=== PATIENT | female | born 1940 | race Caucasian/White ===

== ENCOUNTER 2017-11-15 17:03 | Emergency (ER) | payer MEDICARE, MEDICAID ==
[~2017-11-15] VITALS: Ht 154.9 cm; Wt 73.3 kg
[~2017-11-15 17:03] MED LIST: CHOLESTEROL PILL; DIET PILL; DIPH-423 PO; IBUPROFEN; ONDA8TAB9 PO; PRED50TA PO; RANI-366 PO; [UNRECOGNIZED DRUG - REMARK]
[2017-11-15] MEDS ORDERED: meclizine 12.5mg tablet PO ONE (18:00)
[2017-11-15 18:24] VITALS: BP 136/63
[2017-11-15] MEDS ORDERED: ONDA4TAB12 PO (19:17)
[2017-11-15] MEDS ORDERED: MECL-111 PO (19:17)
== END 2017-11-15 19:26 | disposition home or self-care (01) ==
LOC: ER 17:04
DX: R42 Dizziness and giddiness (principal); R11.0 Nausea; M19.90 Unspecified osteoarthritis, unspecified site; G89.29 Other chronic pain; Z88.5 Allergy status to narcotic agent; Z88.0 Allergy status to penicillin; Z88.8 Allergy status to other drugs, medicaments and biological substances; Z79.899 Other long term (current) drug therapy
CPT/HCPCS: 70450; 93005; 99284; J8597

== ENCOUNTER 2017-12-27 12:32 | Outpatient (CLI) | payer MEDICARE, MEDICAID ==
[2017-12-27] VITALS (18 sets, daily range): BP systolic 114–135; BP diastolic 63–103
[~2017-12-27 12:32] MED LIST changes: +MECL-111 PO; +ONDA4TAB12 PO
== END 2017-12-27 23:59 | disposition home or self-care (01) ==
LOC: CARD DIAG 12:32
PROVIDERS: ATTEND Internal Medicine Interventional Cardiology
DX: R42 Dizziness and giddiness (principal); R55 Syncope and collapse; J44.9 Chronic obstructive pulmonary disease, unspecified; Z85.41 Personal history of malignant neoplasm of cervix uteri; Z87.891 Personal history of nicotine dependence
CPT/HCPCS: 93660

== ENCOUNTER 2025-04-09 16:10 | Emergency (ER) | payer MEDICARE, MEDICAID ==
[~2025-04-09] VITALS: Ht 152.4 cm; Wt 59.1 kg
[~2025-04-09 16:10] MED LIST changes: -MECL-111 PO; +MECL-302 PO; +ONDA-243 PO; -ONDA4TAB12 PO
[2025-04-09 16:16] VITALS: BP 84/39; TEMP 97.8
--- NOTE | 2025-04-09 16:27 | Physician Documentation ---
History of Present Illness ~ Chief Complaint: Hip pain Stated Complaint: HIP PAIN/FALL Time Seen by MD: 16:22 Primary Medical Doctor: chintan GOODE 84-year-old female with a mechanical fall two days ago when she tripped over the dog gate. Suffered a head strike at that time causing contusion to her forehead in the right side of her face without loss of consciousness. Additionally injured her right wrist right knee and right hip. She has had a progressive antalgic gait since that time. Tetanus within 5 Years?: No Medication Reconciliation Allergies: Coded Allergies: acetaminophen (Unverified Allergy, Severe, 07/22/13) hydrocodone (Unverified Allergy, Severe, 07/22/13) codeine (Unverified Allergy, Intermediate, 07/22/13) Penicillins (Unverified Allergy, Unknown, 05/29/14) tramadol (Verified Adverse Reaction, Unknown, 05/29/14) Scheduled Diphenhydramine Hcl (Benadryl), 25 MG PO TID Ondansetron (Zofran Odt), 4 MG PO QID Prednisone (Prednisone), 1 TABLET PO DAILY Ranitidine Hcl (Zantac), 150 MG PO DAILY Scheduled PRN Meclizine HCl (Meclizine HCl), 1 TABLET PO TID PRN PRN for dizziness/vertigo ONDANSETRON ODT 4mg tablet (Ondansetron Odt), 1 TABLET PO Q6H PRN for nausea/vomiting Miscellaneous Medications [Cholesterol Pill], (Reported) [Diet Pill], (Reported) [Gerd Pill], (Reported) [Ibuprofen], (Reported) Past Medical History Past Medical History: Arthritis, Chronic Back Pain Past Surgical History: noncontributory Lives In: Home Occupation: retired Physical Exam Vital Signs: RN Vital Signs have been reviewed: Yes, Temperature: 97.8, Source: Temporal, Heart Rate: 81, Respiratory Rate: 18, BP: 84/39, Pulse Oximetry: 95, Weight: 59.090 General Appearance: alert, WD/WN, mild distress Head: contusions (Right temporal superior orbit); No: Correa's Sign Face: normal, ecchymosis (Healing ecchymosis) Eye Lid: normal inspection Pupils/EOM/Fundus: PERRLA Neck: non-tender, full range of motion, normal alignment Chest: normal inspection Cardiovascular: normal peripheral pulses Gastrointestinal: normal palpation Extremities Tenderness to palpation of the right wrist without deformity excellent cap refill. Tenderness to palpation of the right hip without deformity, external rotation or shortening. Tenderness to the right knee without obvious effusion Skin: warm/dry Neurologic: oriented x4 Motor / Sensory: no motor deficit Thoughts/Hallucinations: normal thought pattern Affect: appropriate Progress Results/Orders Results/Orders Orders - MANFRED EUCEDA PAC Ct Head (04/09/25 16:46) Ct Cervical Spine (04/09/25 16:49) Ct Facial Bones/Soft Tissue (04/09/25 16:47) Knee Limited (Ap/Lat) (04/09/25 ) Wrist, Complete (3vw Min) (04/09/25 ) Completed Orders - MANFRED EUCEDA PAC Ct Head (04/09/25 16:46) Ct Cervical Spine (04/09/25 16:49) Ct Facial Bones/Soft Tissue (04/09/25 16:47) Knee Limited (Ap/Lat) (04/09/25 ) Wrist, Complete (3vw Min) (04/09/25 ) Vital Signs 04/09/25 04/09/25 16:16 17:19 Temp 97.8 Pulse 81 Resp 18 16 B/P (MAP) 84/39 Pulse Ox 95 Medical Decision Making Additional information obtaine: family Findings Examination is reassuring and CT imaging x-ray imaging also reassuring. Patient provided breakthrough pain management in the emergency department 7.5 mg of [place]. She will be discharged to continue with her current pain regimen. Discharge safe stable condition to family. Differential Dx:Considerations: Include: Closed head injury, Cardiac injury, Fracture(s), Intraabdominal injury, Pneumothorax, Cerebral contusion, Pulmonary contusion, Spine injury, Tracheal injury, Urological injury, Vascular injury, Abrasion(s), Contusion(s), Foreign body(s), Hematoma(s), Laceration(s), Encephalopathy, Other Departure Impression: Primary Impression: Hip pain Qualified Codes: M25.551 - Pain in right hip Additional Impressions: Head injury Qualified Codes: S09.90XA - Unspecified injury of head, initial encounter Facial contusion Qualified Codes: S00.83XA - Contusion of other part of head, initial encounter Wrist injury Qualified Codes: S69.91XA - Unspecified injury of right wrist, hand and finger(s), initial encounter Condition: Improved Additional Instructions: Your x-rays are reassuring for no fracture. CT imaging of your head, neck and face also reassuring for no fracture. Please continue with your pain management as directed by her primary care physician and make follow up appointment. Have a happy Thanksgiving. Referrals: NO PRIMARY CARE PROVIDER (PCP) Education Educated: Patient Educated regarding: diagnosis, treatment, prognosis, need for follow up Signature Scribe Signature: . Attestation: . MANFRED EUCEDA PAC Apr 09, 2025 16:27
--- NOTE | 2025-04-09 17:03 | RADIOLOGY REPORT ---
Procedure: CT CT HEAD [place] Study Date and Requested Time: 04/09/2025 04:36 PM History: Head strike Comparison: None Dose: CTDI: 47.61 mGy DLP: 827.3 mGycm Technique: Multiplanar images obtained through the brain without intravenous mild diffuse brain atrophy. Findings: Normal brain volume and formation. Mild chronic small vessel ischemic changes. No hemorrhages, masses, mass effect, midline shift, herniation or cytotoxic edema following a large vascular territory. No intra-axial or extra-axial fluid collections. No evidence of hydrocephalus. The basal cisterns are patent. The pituitary gland, sella and parasellar regions are unremarkable. The cerebellar tonsils are in normal position. The cerebellum is unremarkable. Bilateral lens replacement. Otherwise, orbits and globes are unremarkable. The paranasal sinuses and mastoids are clear. There are no worrisome calvarial lesions. Impression: No evidence of acute intracranial abnormality.
--- NOTE | 2025-04-09 17:07 | RADIOLOGY REPORT ---
right HIP RADIOGRAPH. CLINICAL INDICATION: RIGHT HIP PAIN TECHNIQUE: 3 views of the right hip were obtained. FINDINGS: There is no evidence of fracture, subluxation or dislocation. Moderate bilateral hip osteoarthritis right worse than left. The bony mineralization is normal.No radiopaque foreign body is identified. IMPRESSION: 1. No evidence of acute bony injury.
--- NOTE | 2025-04-09 17:07 | RADIOLOGY REPORT ---
EXAM: DI KNEE LIMITED (AP/LAT) CLINICAL INDICATION: Fall TECHNIQUE: DI KNEE LIMITED (AP/LAT) Comparison: None FINDINGS/IMPRESSION: There is no evidence of acute fracture or dislocation. ADVANCED RIGHT KNEE OSTEOARTHRITIS. CORTICAL SCREW IN THE PROXIMAL TIBIAL SHAFT. The alignment is anatomical. There is no radiopaque foreign body.
--- NOTE | 2025-04-09 17:08 | RADIOLOGY REPORT ---
Procedure: CT CT FACIAL BONES/SOFT TISSUE [place] Study Date and Requested Time: 04/09/2025 04:38 PM History: Head strike Comparison: None Dose: CTDI: 53.69 mGy DLP: 919.41 mGycm Technique: Multiplanar images obtained through the face without intravenous contrast. Findings: No evidence of acute traumatic fractures. Minimal mucoperiosteal thickening of the ethmoid air cells with mild mucoperiosteal thickening of the left sphenoid sinus. The remainder of the paranasal sinuses and partially visualized mastoids are clear. Severe degenerative changes of the Left and moderate degenerative changes of the right TMJ. The nasopharynx, oropharynx and hypopharynx are unremarkable. Bilateral lens replacement. Otherwise, orbits and globes unremarkable. Minimal bilateral cheek soft tissue edema. The nasal septum is relatively midline. No nasal masses are visualized. Moderate to severe degenerative changes of the visualized cervical spine. Impression: No evidence of acute traumatic fractures. Mucoperiosteal thickening of the ethmoid air cells and left sphenoid sinus.
--- NOTE | 2025-04-09 17:08 | RADIOLOGY REPORT ---
INDICATION: Fall TECHNIQUE: 4 radiographic views of the right wrist were obtained. COMPARISON: None FINDINGS: Advanced right 1st CMC osteoarthritis There is no evidence of acute fracture or dislocation.The visualized joint space is well maintained.The alignment is anatomical.The surrounding soft tissues are unremarkable.There is no bony lesions or erosions identified. IMPRESSION: No acute fracture.
[2025-04-09] MEDS: HYDROcodone/acetaminophen 5mg/325mg tablet PO ONE (17:51)
[2025-04-09 17:55] VITALS: PULSE 68; RESP 16; O2SAT 97
--- NOTE | 2025-04-09 18:10 | RADIOLOGY REPORT ---
EXAM: CT CT CERVICAL SPINE HISTORY: Head strike,. COMPARISON: None CTDIvol 19.58 mGy, DLP 418.45 mGy*cm. TECHNIQUE: Multiple axial CT images of the spine were obtained using bone algorithm. Axial and coronal reformatting was done. Bone and soft tissue windows were reviewed. FINDINGS: No evidence of definite acute fracture, spinal dislocation, or significant appearing acute subluxation is seen. Moderate to severe degenerative disc disease throughout the cervical spine with disc height loss, endplate sclerosis, and endplate osteophyte formation. IMPRESSION: No acute abnormality.
== END 2025-04-09 17:59 | disposition home or self-care (01) ==
LOC: ER 16:10
DX: S00.83XA Contusion of other part of head, initial encounter (principal); S69.91XA Unspecified injury of right wrist, hand and finger(s), initial encounter; S09.90XA Unspecified injury of head, initial encounter; M25.551 Pain in right hip; M19.90 Unspecified osteoarthritis, unspecified site; Z88.0 Allergy status to penicillin; Z88.5 Allergy status to narcotic agent; Z88.8 Allergy status to other drugs, medicaments and biological substances; W01.10XA Fall on same level from slipping, tripping and stumbling with subsequent striking against unspecified object, initial encounter; Y93.89 Activity, other specified; Y92.89 Other specified places as the place of occurrence of the external cause; Y99.8 Other external cause status
CPT/HCPCS: 70450; 70486; 72125; 73110; 73502; 73560; 99284